=== PATIENT | female | born 1995 | race Caucasian/White ===

== ENCOUNTER 2018-10-22 13:54 | Emergency (ER) | payer MEDICAID ==
--- NOTE | 2018-10-22 17:35 | C.PDOC ---
History Of Present Illness 23 y/o female , approx 5 weeks , presents c/o vaginal spotting after lifting a heavy box at work. Patient states she saw blood when she wiped. Denies abdominal pain. Patient has appt for sonogram on Saturday. No other com plaints offered at this time. Time Seen by Provider: 10/22/18 17:03 Chief Complaint (Nursing): Female Genitourinary History Per: Patient History/Exam Limitations: no limitations Past Medical History Reviewed: Historical Data, Nursing Documentation, Vital Signs Vital Signs: Last Vital Signs Temp 98.1 F 10/22/18 14:09 Pulse 82 10/22/18 14:09 Resp 20 10/22/18 14:09 BP 112/66 10/22/18 14:09 Pulse Ox 100 10/22/18 14:09 Family History: States: Unknown Family Hx - Social History Hx Tobacco Use: No Hx Alcohol Use: No Hx Substance Use: No - Immunization History Hx Tetanus Toxoid Vaccination: No Hx Influenza Vaccination: No Hx Pneumococcal Vaccination: No Review Of Systems Constitutional: Negative for: Fever Respiratory: Negative for: Shortness of Breath Gastrointestinal: Negative for: Vomiting, Abdominal Pain, Diarrhea Genitourinary: Positive for: Vaginal Bleeding. Negative for: Dysuria, Frequency Physical Exam - Physical Exam Appears: Non-toxic, No Acute Distress Skin: No Rash Head: Normacephalic Eye(s): bilateral: PERRL, EOMI Oral Mucosa: Moist Neck: Normal ROM, Supple Chest: Symmetrical Cardiovascular: Rhythm Regular, No Murmur Respiratory: No Rales, No Rhonchi, No Wheezing, Other (Lungs CTA bilaterally) Gastrointestinal/Abdominal: Soft, No Tenderness, No Guarding, No Rebound Extremity: Normal ROM, No Calf Tenderness, No Swelling Neurological/Psych: Oriented x3, Normal Speech ED Course And Treatment - Laboratory Results Result Diagrams: 10/22/18 17:55 10/22/18 17:55 O2 Sat by Pulse Oximetry: 100 (RA) Pulse Ox Interpretation: Normal - CT Scan/US OB ultrasound Other Rad Studies (CT/US): Read By Radiologist, Radiology Report Reviewed CT/US Interpretation: IMPRESSION: Single live intrauterine gestation of approximately 6 weeks. cardiac activity identified. Small subchorionic bleed measuring 0.9 x 0.4 x 1.5 cm. Small right corpus luteum cyst. Clinical correlation and follow-up study recommended. Medical Decision Making Medical Decision Making: Plan: Blood work and urine ordered and reviewed. Transvag/pelvic ultrasound pending. 2030 Ultrasound findings discussed, pt provided with copy to bring to inspector set up and lay out Disposition Counseled Patient/Family Regarding: Studies Performed, Diagnosis, Need For Followup - Disposition Referrals: Carlos Gandara MD [Staff Provider] - Disposition: HOME/ ROUTINE Disposition Time: 20:36 Condition: GOOD Additional Instructions: Please follow up with Dr Gandara in the next few days. Bring sonogram report with you. Pelvic rest- nothing in vagina. no sex, no tampons, no douching. Return to ER for heavy vaginal bleeding (one pad per hour soaked), abdominal pain or any other concerning problems. Instructions: Threatened Miscarriage (DC) Forms: [facility] (U[place]), General Discharge Instructions - Clinical Impression Clinical Impression: Threatened - PA / [employer] / Resident Statement / has reviewed & agrees with the documentation as recorded. - Scribe Statement The provider has reviewed the documentation as recorded by the Jean Claudeibprasad Workman All medical record entries made by the Jean Claudeibprasad were at my direction and personally dictated by me. I have reviewed the chart and agree that the record accurately reflects my personal performance of the history, physical exam, medical decision making, and the department course for this patient. I have also personally directed, reviewed, and agree with the discharge instructions and disposition.
[2018-10-22 17:59] LABS: BASO # 0.1 K/uL (0.0-0.2); BASO % 0.5 % (0.0-2.0); EOS # 0.1 K/uL (0.0-0.7); EOS % 0.7 % (0.0-4.0); HEMOGLOBIN 12.4 g/dL (11.0-16.0); LYMPH # 2.4 K/uL (1.0-4.3); LYMPH % 22.7 % (20.0-40.0); MEAN CELL VOLUME 85.6 fL (81.0-99.0); MEAN CORPUSCULAR HEMOGLOBIN 28.8 pg (27.0-31.0); MEAN CORPUSCULAR HGB CONC 33.7 g/dL (33.0-37.0); MEAN PLATELET VOLUME 9.3 fL (7.2-11.7); MONO % 9.4 % (0.0-10.0); NEUT % 66.7 % (50.0-75.0); RBC 4.28 Mil/uL (3.80-5.20); RED CELL DISTRIBUTION WIDTH 15.3 % (11.5-14.5); WHITE BLOOD COUNT 10.6 K/uL (4.8-10.8)
[2018-10-22 18:06] LABS: SQUAMOUS EPITHIAL 21 /hpf (0-5); URINE BACTERIA RARE (<OCC); URINE BILIRUBIN NEGATIVE (NEGATIVE); URINE BLOOD NEGATIVE (NEGATIVE); URINE CLARITY Hazy (Clear); URINE COLOR Yellow (YELLOW); URINE GLUCOSE (UA) NORMAL (Normal); URINE LEUKOCYTE ESTERASE NEG Leu/uL (Negative); URINE PROTEIN NEGATIVE (NEGATIVE); URINE UROBILINOGEN NORMAL mg/dL (0.2-1.0)
[2018-10-22 18:37] LABS: ALB/GLOB RATIO 1.4 (1.0-2.1); ALBUMIN 4.4 g/dL (3.5-5.0); ALT/SGPT 20 U/L (9-52); AST/SGOT 19 U/L (14-36); BLOOD UREA NITROGEN 14 mg/dL (7-17); CALCIUM 9.1 mg/dl (8.6-10.4); GFR NON-AFRICAN AMERICAN > 60
[2018-10-22 20:57] VITALS: BP 110/78; PULSE 78; RESP 18; TEMP 98
--- NOTE | 2018-10-23 10:42 | US ---
Date of service: 10/22/2018 Indication: Vaginal , spotting Comparison: None available. Technique: Transabdominal pelvic ultrasound Findings: The uterus measures approximately 11.8 x 5.5 x 6.1 cm. Anteverted. Cervix length measures approximately 3.4 cm. There is a single intrauterine fetus present. 4 mm yolk sac. The gestational sac measures 1.8 cm and is compatible with a gestational age of 6 weeks 1 day. The crown-rump length measures 0.4 cm and is compatible with a gestational age of 6 weeks 0 days. 0.9 x 0.4 x 1.5 cm small subchorionic hemorrhage. There is heart motion which measured 112 BPM. The right ovary measures 3.0 x 2.6 x 3.1 cm. The left ovary measures 2.7 x 1.7 x 3.1 cm. Blood flow was demonstrated to both ovaries. 1.7 x 1.7 x 1.6 cm right corpus luteal cyst. Impression: Live single intrauterine with estimated gestational age 6 weeks 0 days by crown-rump length calculation. heart rate 112 bpm. 0.9 x 0.4 x 1.5 cm subchorionic hemorrhage. 1.7 x 1.7 x 1.6 cm probable right corpus luteum cyst. Advise an anomaly screen at 16-18 weeks gestational age Preliminary impression was provided by [employer].
[2018-10-24 13:14] VITALS: O2SAT 100
== END 2018-10-22 20:57 | disposition home or self-care (01) ==
LOC: C.ER 13:54
DX: O20.0 Threatened abortion (principal); Z3A.01 Less than 8 weeks gestation of pregnancy